=== PATIENT | male | born 2000 | race Caucasian/White ===

== ENCOUNTER 2023-03-30 16:46 | Emergency (ER) | payer BC, SELFPAY ==
[2023-03-30 17:05] VITALS: BP 118/64; PULSE 83; RESP 18; TEMP 37.1; O2SAT 99; BMI 17.9
--- NOTE | 2023-03-30 17:05 | ED.GENADULT ---
HPI - General Adult General Chief complaint: General Medical Stated complaint: ingrown toe nails Time Seen by Provider: 03/30/23 17:38 Source: patient Mode of arrival: ambulatory Limitations: no limitations History of Present Illness HPI narrative: 23-year-old male presents with pain to bilateral great toes for the past few weeks worsening, he says the outer part of his nail is red, swollen, painful and it is leaking yellow discharge. Has not seen a top executive for this before. Reports he wears tight fitting shoes. Denies fevers, chills, numbness, tingling. Related Data Previous Rx's Medication Instructions Recorded cephalexin 500 mg tablet 500 mg PO Q6H 10 days #40 tabs 03/30/23 doxycycline hyclate 100 mg capsule 100 mg PO BID 10 days #20 caps 03/30/23 Allergies Allergy/AdvReac Type Severity Reaction Status Date / Time No Known Allergies Allergy Verified 03/30/23 17:05 Review of Systems Review of Systems: Constitutional : No Weight loss, No Fever, No Chills, No Fatigue, No Malaise ENT/Mouth : No sore throat, No Rhinorrhea Eyes: No Eye Pain, No Swelling, No Redness Cardiovascular : No Chest Pain, No SOB, No Dyspnea on Exertion, No Orthopnea, No Edema, No Palpitations Respiratory : No Cough, No Sputum, No Wheezing Gastrointestinal : No Nausea, No Vomiting, No Diarrhea, No Constipation, No abdominal Pain, No Hematochezia, No Melena Genitourinary : No Dysuria, No Urinary Frequency, No Hematuria, Musculoskeletal : No joint pain, No Myalgias, + Joint Swelling Skin : No Skin Lesions, No rash Neuro : No Weakness, No Numbness, No Dizziness, No Headache Psych : No Anxiety/Panic, No Depression All other systems reviewed and are negative Yes all other systems are reviewed and are negative [facility] Past Medical History Attestation statement: The following information was validated with the patient. Source: old records reviewed and nursing notes reviewed Physical Exam ED Vital Signs: Vital Signs - 24 hr 03/30/23 17:05 Temperature 98.8 F Pulse Rate 83 Respiratory Rate 18 Blood Pressure 118/64 Pulse Oximetry 99 Oxygen Delivery Method Room Air BMI result Body Mass Index 17.9 vss Appearance: Alert.? Oriented X3.? No acute distress.? Head: Normocephalic, atraumatic, no step-offs or deformities Eyes: Pupils equal, round and reactive to light.? Neck: Normal inspection.? Neck supple.? CVS: Normal heart rate and rhythm.? Pulses normal.? Respiratory: No respiratory distress.? Breath sounds normal.? Abdomen: Soft and nontender.? Skin: Skin warm and dry.? Normal skin color.? Normal skin turgor.? + b/l great toes w/ paronychia and d/c errythema and warmth Extremities: No lower extremity edema.? No calf ttp. 5/5 strength to bilateral upper and lower extremities Neuro: Oriented X 3.? No motor deficit.? No sensory deficit. CN 2-12 intact Course Course Course Narrative: This is a rapid medical exam: Additional HPI, ROS, PE not included below will be deferred to primary provider. Patient is a 23-year-old male presenting to the emergency department with complaint of pain, redness, and swelling to bilateral great toes. States he tried to make an appointment but was unable to be seen until April. Medical Decision Making Medical Decision Making MDM Narrative: 23-year-old male presents with pain to bilateral great toes worsening for the past few days Physical exam paronychia and cellulitis to bilateral great toes History and physical exam consistent with draining paronychia with cellulitis overlying. No signs of fluctuant abscess. No signs of osteomyelitis, septic joint. No signs of neurovascular compromise or threat to limb Plan will discharge him with follow-up with Podiatry, and antibiotics. Educated patient on diagnosis and treatment plan, answered all question, patient verbalizes understanding. At this time patient will be discharged home, advised to return with new or worsening symptoms. Educated on worrisome signs and symptoms and when to return. At this time I feel comfortable discharge home. Differential Diagnosis Differential Diagnoses: The differential diagnosis associated with the presentation includes History and physical exam consistent with draining paronychia with cellulitis overlying. No signs of fluctuant abscess. No signs of osteomyelitis, septic joint. No signs of neurovascular compromise or threat to limb Admission/Observation Consideration of admission/observation: Escalation of care including admission/observation considered no indication Discharge Plan Discharge Clinical Impression: Paronychia of great toe of left foot, Paronychia of great toe of right foot, Cellulitis, Ingrowing nail, left great toe, Ingrowing nail, right great toe Patient Disposition: Home, Self-Care Instructions: Paronychia (ED), Cellulitis (ED), Ingrown Nail (ED) Additional Instructions: Take your medications as prescribed. If you were prescribed antibiotics today, it is important that you take your medication to their entirety, do not skip any doses, do not finish them early. Follow-up with your primary care provider this week. Return to the emergency department with new or worsening symptoms. Such as fevers, chills, chest pain, shortness of breath, nausea, vomiting, dizziness, headache, vision changes, lethargy In case of emergency call 911 Please call [facility], [address] [place] [address] [phone] Prescriptions: New doxycycline hyclate 100 mg capsule 100 mg PO BID 10 Days Qty: 20 0RF cephalexin 500 mg tablet 500 mg PO Q6H 10 Days Qty: 40 0RF Referrals: Physician,None [Primary Care Provider] - 2 days Stand Alone Forms: Work/School Release
[2023-03-30 18:48] VITALS: BP 119/69; PULSE 65; RESP 18; TEMP 36.6; O2SAT 100
--- NOTE | 2023-03-30 18:52 | PC.NURSE ---
lucien davis. +CMS.
== END 2023-03-30 18:54 | disposition home or self-care (01) ==
LOC: HO.ED 18:43
PROVIDERS: Emergency Provider Emergency Medicine
DX: L03.031 Cellulitis of right toe (principal); L03.032 Cellulitis of left toe; L60.0 Ingrowing nail
CPT/HCPCS: 99283; 99284

== ENCOUNTER → 2024-02-06 11:14 | Outpatient (BNVA) | payer OTHER, SELFPAY | PROVIDERS: Visit Provider Physician Assistant Medical | DX: T15.01XA Foreign body in cornea, right eye, initial encounter (principal) | CPT/HCPCS: 65222; 99203 ==

== ENCOUNTER → 2024-03-19 11:53 | Outpatient (BNVA) | payer OTHER, SELFPAY | PROVIDERS: Visit Provider Registered Nurse | DX: S81.012A Laceration without foreign body, left knee, initial encounter (principal); W29.3XXA Contact with powered garden and outdoor hand tools and machinery, initial encounter | CPT/HCPCS: 12001; 99203 ==

== ENCOUNTER → 2024-03-21 09:50 | Outpatient (BNVA) | payer OTHER, SELFPAY | PROVIDERS: Visit Provider Physician Assistant Medical | DX: S81.012A Laceration without foreign body, left knee, initial encounter (principal); W29.3XXA Contact with powered garden and outdoor hand tools and machinery, initial encounter | CPT/HCPCS: 99213 ==

== ENCOUNTER → 2024-03-26 08:52 | Outpatient (BNVA) | payer OTHER, SELFPAY | PROVIDERS: Visit Provider Physician Assistant Medical | DX: S81.012D Laceration without foreign body, left knee, subsequent encounter (principal); W29.3XXD Contact with powered garden and outdoor hand tools and machinery, subsequent encounter; L03.116 Cellulitis of left lower limb | CPT/HCPCS: 87070; 87077; 87186; 87205; 99212; 99213 ==

== ENCOUNTER → 2024-04-02 10:49 | Outpatient (BNVA) | payer OTHER, SELFPAY | PROVIDERS: Visit Provider Physician Assistant Medical | DX: S81.012D Laceration without foreign body, left knee, subsequent encounter (principal); W29.3XXD Contact with powered garden and outdoor hand tools and machinery, subsequent encounter; B95.62 Methicillin resistant Staphylococcus aureus infection as the cause of diseases classified elsewhere; Z16.29 Resistance to other single specified antibiotic | CPT/HCPCS: 99213 ==